=== PATIENT | male | born 1985 | race Caucasian/White ===

== ENCOUNTER 2017-12-18 18:15 | Inpatient (IN) | payer MEDICAID, OTHER ==
[~2017-12-18] VITALS: Ht 180.3 cm; Wt 72.6 kg
[2017-12-18 19:26] LABS: AMPHET/METH SCREEN,URINE POSITIVE (NEGATIVE); BARBITURATE SCREEN, URINE NEGATIVE (NEGATIVE); BENZODIAZEPINES SCREEN,URINE NEGATIVE (NEGATIVE); CANNABINOID SCREEN,URINE NEGATIVE (NEGATIVE); COCAINE SCREEN,URINE NEGATIVE (NEGATIVE); METHADONE SCREEN, URINE NEGATIVE (NEGATIVE); OPIATE SCREEN,URINE NEGATIVE (NEGATIVE)
[2017-12-18 19:27] LABS: PHENCYCLIDINE SCREEN,URINE NEGATIVE (NEGATIVE)
[2017-12-18] MEDS ORDERED: HALOPERIDOL LACTATE 5 MG/ML VIAL IM ONE (19:45)
[2017-12-18] MEDS ORDERED: LORazepam 2 MG/ML VIAL IM ONE (19:45)
[2017-12-18] MEDS ORDERED: DiphenhydrAMINE HCL 50 MG/ML VIAL IM ONE (19:45)
[2017-12-18] MEDS ORDERED: HALOPERIDOL 5 MG TABLET PO PRN (20:15)
[2017-12-18 21:03] LABS: BASOPHILS % (AUTO) 0.6 % (0.0-2.0); EOSINOPHILS % (AUTO) 2.9 % (1.0-6.0); HEMATOCRIT 44.9 % (41-53); LYMPHOCYTES # (AUTO) 2.4 K/uL (1.0-4.8); LYMPHOCYTES % (AUTO) 29.1 % (22.0-44.0); MEAN CORPUSCULAR HEMOGLOBIN 29.8 pg (26.0-34.0); MEAN CORPUSCULAR HGB CONC 33.4 G/dL (31.0-37.0); MEAN CORPUSCULAR VOLUME 89 fL (80-100); MONOCYTES # (AUTO) 0.6 K/uL (0.1-1.0); MONOCYTES % (AUTO) 7.6 % (2.0-9.0); NEUTROPHILS # (AUTO) 4.9 K/uL (1.8-7.7); NEUTROPHILS % (AUTO) 59.8 % (40.0-70.0); PLATELET COUNT (AUTO) 232 K/uL (150-450); RED BLOOD CELL COUNT(AUTO) 5.02 MIL/uL (4.50-5.90); RED CELL DISTRIBUTION WIDTH 14.2 % (11.5-14.5)
[2017-12-18 21:12] LABS: ANION GAP 8 mmol/L (8-16); CALCIUM, TOTAL 8.9 mg/dL (8.8-10.5); CARBON DIOXIDE 27 mmol/L (22-29); CHLORIDE 105 mmol/L (98-107); CREATININE 0.82 mg/dL (0.60-1.30); GLOMERULAR FILTR. RATE CALC > 60 mL/min (>60); GLUCOSE,RANDOM 89 mg/dL (70-110); POTASSIUM 3.6 mmol/L (3.5-5.1); SODIUM SERUM 140 mmol/L (136-145); UREA NITROGEN, BLOOD 10 mg/dL (7-18)
[2017-12-18 21:18] LABS: ALANINE AMINOTRANSFERASE 20 U/L (12-78); ALBUMIN 3.9 g/dL (3.4-5.0); ALKALINE PHOSPHATASE 70 U/L (46-116); ASPARTATE AMINOTRANSFERASE 23 U/L (15-37); BILIRUBIN,TOTAL 2.4 mg/dL (0.1-1.0); TOTAL PROTEIN, SERUM 7.5 g/dL (6.4-8.2)
[2017-12-19 06:38] LABS: CHOL/HDL RATIO 3.2 (4.2-7.3); CHOLESTEROL 124 mg/dL (131-200); HDL CHOLESTEROL 39 mg/dL (40-60); LDL CHOL (CALC.) 70 mg/dL (0-130); TRIGLYCERIDES 76 mg/dL (15-150)
[2017-12-20] MEDS ORDERED: BENZOCAINE/MENTHOL LOZENGE MM PRN (07:30)
[2017-12-20] MEDS ORDERED: ACETAMINOPHEN 325 MG TABLET PO PRN (07:30)
[2017-12-20] MEDS ORDERED: CloNIDine HCL 0.1 MG TABLET PO PRN (07:30)
[2017-12-20] MEDS ORDERED: PETROLATUM,WHITE 71 GM JELLY TP PRN (07:30)
[2017-12-20] MEDS ORDERED: ALBUTEROL SULFATE HFA 90 MCG/PUFF 8 GM INHALER IH PRN (07:30)
[2017-12-20] MEDS ORDERED: MAGNESIUM HYDROXIDE SUSPENSION 30 ML UDCUP PO PRN (07:30)
[2017-12-20] MEDS ORDERED: BACITRACIN 28.4 GM OINTMENT TP PRN (07:30)
[2017-12-20] MEDS ORDERED: LOPERAMIDE HCL 2 MG CAPSULE PO PRN (07:30)
[2017-12-20] MEDS ORDERED: MAG HYDROX/AL HYDROX/SIMETH ES 30 ML SUSPENSION UDCUP PO PRN (07:30)
[2017-12-20] MEDS ORDERED: IBUPROFEN 600 MG TABLET PO PRN (07:30)
[2017-12-20] MEDS ORDERED: ONDANSETRON HCL 4 MG TABLET PO PRN (07:30)
[2017-12-20] MEDS ORDERED: LORazepam 2 MG/ML VIAL ONE (08:06)
[2017-12-20] MEDS ORDERED: HALOPERIDOL LACTATE 5 MG/ML VIAL ONE (08:06)
[2017-12-20] MEDS ORDERED: DiphenhydrAMINE HCL 50 MG/ML VIAL ONE (08:06)
[2017-12-20] MEDS ORDERED: LORazepam 2 MG/ML VIAL IM ONE (08:15)
[2017-12-20] MEDS ORDERED: DiphenhydrAMINE HCL 50 MG/ML VIAL IM ONE (08:15)
[2017-12-20] MEDS ORDERED: HALOPERIDOL LACTATE 5 MG/ML VIAL IM ONE (08:15)
[2017-12-20 12:00] VITALS: BP 110/73
[2017-12-20 16:30] VITALS: BP 118/76
[2017-12-21 01:38] VITALS: BP 148/76
[2017-12-21] MEDS ORDERED: INFLUENZA VIRUS VACCINE QVS 2017-18 (3YR+)/PF 60 MCG/0.5 ML SYRINGE IM ONE (07:30)
[2017-12-21 08:12] VITALS: BP 112/68
[2017-12-21] MEDS ORDERED: OLAN5TAB30 PO (13:58)
[2017-12-21] MEDS ORDERED: MIRT15 PO ×2 (13:58→14:08)
[2017-12-21] MEDS ORDERED: NALT50TA PO (13:58)
[2017-12-21] MEDS ORDERED: NALT50TA6 PO (14:08)
[2017-12-21] MEDS ORDERED: OLAN5TAB40 PO (14:08)
[2017-12-21] MEDS: ZOLPIDEM TARTRATE 10 MG TABLET PO PRN (20:36)
[2017-12-21] MEDS: MIRTAZAPINE 15 MG TABLET PO SCH (20:36)
[2017-12-21] MEDS ORDERED: OLANZapine 5 MG RAPDIS TABLET PO SCH (21:00)
[2017-12-22 07:04] VITALS: BP 119/75
[2017-12-22 08:34] VITALS: BP 109/60
[2017-12-22] MEDS: NALTREXONE HCL 50 MG TABLET PO SCH (09:09)
[2017-12-22 16:00] VITALS: BP 128/80
[2017-12-22] MEDS: MIRTAZAPINE 15 MG TABLET PO SCH (20:40)
[2017-12-22] MEDS: ZOLPIDEM TARTRATE 10 MG TABLET PO PRN (20:40)
[2017-12-22] MEDS: LORazepam 2 MG TABLET PO PRN (20:40)
[2017-12-22] MEDS ORDERED: OLANZapine 5 MG RAPDIS TABLET PO SCH (21:00)
[2017-12-23 06:35] VITALS: BP 111/63
[2017-12-23 08:29] VITALS: BP 109/64
[2017-12-23] MEDS: NALTREXONE HCL 50 MG TABLET PO SCH (08:31)
[2017-12-23] MEDS: LORazepam 2 MG TABLET PO PRN (08:31)
== END 2017-12-23 15:04 | disposition home or self-care (01) | DRG 750 ==
LOC: EMS 18:20 → B3A 21:23 → UNDOADMIN 21:23 → B3A 12-20 10:50
PROVIDERS: ADMIT Psychiatry & Neurology Child & Adolescent Psychiatry; ATTEND Psychiatry & Neurology Psychiatry
PROC: 3E0234Z Introduction of Serum, Toxoid and Vaccine into Muscle, Percutaneous Approach (ICD-10-PCS; principal; 2017-12-21)
DX: F20.0 Paranoid schizophrenia (principal); Z91.14 Patient's other noncompliance with medication regimen; F11.10 Opioid abuse, uncomplicated; F15.10 Other stimulant abuse, uncomplicated; F17.210 Nicotine dependence, cigarettes, uncomplicated; F43.10 Post-traumatic stress disorder, unspecified; G47.00 Insomnia, unspecified; F41.9 Anxiety disorder, unspecified; S51.812A Laceration without foreign body of left forearm, initial encounter; X78.0XXA Intentional self-harm by sharp glass, initial encounter; Y93.89 Activity, other specified; Y92.89 Other specified places as the place of occurrence of the external cause; Z65.3 Problems related to other legal circumstances; Z88.8 Allergy status to other drugs, medicaments and biological substances; Z79.899 Other long term (current) drug therapy; Z23 Encounter for immunization
CPT/HCPCS: 96372; 99291; G0480; J1200; J1630; J2060

== ENCOUNTER 2017-12-30 20:13 | Emergency (ER) | payer MEDICAID ==
[~2017-12-30] VITALS: Ht 180.3 cm; Wt 75.5 kg
[~2017-12-30 20:13] MED LIST: MIRT15 PO; NALT50TA PO; NALT50TA6 PO; OLAN5TAB30 PO; OLAN5TAB40 PO
[2017-12-30 20:16] VITALS: BP 159/92
== END 2017-12-30 21:16 | disposition left against medical advice (07) ==
LOC: EMS 20:14
DX: M54.5 Low back pain (principal); Z53.21 Procedure and treatment not carried out due to patient leaving prior to being seen by health care provider

== ENCOUNTER 2019-02-07 12:25 | Inpatient (IN) | payer MEDICAID ==
[~2019-02-07] VITALS: Ht 180.3 cm; Wt 88.1 kg
[2019-02-07 12:40] VITALS: BP 126/72
[2019-02-07] MEDS ORDERED: ZOLPIDEM TARTRATE 10 MG TABLET PO PRN (13:00)
[2019-02-07] MEDS ORDERED: HALOPERIDOL 5 MG TABLET PO PRN (13:00)
[2019-02-07] MEDS ORDERED: LORazepam 2 MG TABLET PO PRN (13:00)
[2019-02-07 13:15] VITALS: BP 140/73
[2019-02-07 13:37] VITALS: BP 140/73
[2019-02-07] MEDS ORDERED: DOCUSATE SODIUM 100 MG CAPSULE PO PRN (13:45)
[2019-02-07] MEDS ORDERED: ONDANSETRON HCL 4 MG TABLET PO PRN (13:45)
[2019-02-07] MEDS ORDERED: ALBUTEROL SULFATE HFA 90 MCG/PUFF 8 GM INHALER IH PRN (13:45)
[2019-02-07] MEDS ORDERED: GuaiFENesin/D-METHORPHAN [SUGAR-FREE] 200-20MG/10 ML SYRUP UDCUP PO PRN (13:45)
[2019-02-07] MEDS ORDERED: ACETAMINOPHEN 325 MG TABLET PO PRN (13:45)
[2019-02-07] MEDS ORDERED: LOPERAMIDE HCL 2 MG CAPSULE PO PRN (13:45)
[2019-02-07] MEDS ORDERED: PETROLATUM,WHITE 28 GM JELLY TP PRN (13:45)
[2019-02-07] MEDS ORDERED: IBUPROFEN 400 MG TABLET PO PRN (13:45)
[2019-02-07] MEDS ORDERED: MAGNESIUM HYDROXIDE SUSPENSION 30 ML UDCUP PO PRN (13:45)
[2019-02-07] MEDS ORDERED: NICOTINE 14 MG/24 HOUR PATCH TD PRN (13:45)
[2019-02-07] MEDS ORDERED: CloNIDine HCL 0.1 MG TABLET PO PRN (13:45)
[2019-02-07] MEDS ORDERED: MAG HYDROX/AL HYDROX/SIMETH ES 30 ML SUSPENSION UDCUP PO PRN (13:45)
[2019-02-07] MEDS ORDERED: PNEUMOCOCCAL VACCINE POLYVALENT 0.5 ML VIAL [PPSV23] IM ONE (14:00)
[2019-02-07] MEDS: NYSTATIN 15 GM POWDER BOTTLE TP SCH (16:52)
[2019-02-07 17:21] VITALS: BP 147/73
[2019-02-08 06:27] VITALS: BP 121/82
[2019-02-08 08:27] VITALS: BP 129/76
[2019-02-08] MEDS: NYSTATIN 15 GM POWDER BOTTLE TP SCH ×2 (08:31→17:08)
[2019-02-08 16:38] VITALS: BP 117/67
[2019-02-08] MEDS: OLANZapine 10 MG TABLET PO SCH (20:43)
[2019-02-09 06:28] VITALS: BP 118/78
[2019-02-09 08:25] VITALS: BP 135/68
[2019-02-09] MEDS: NYSTATIN 15 GM POWDER BOTTLE TP SCH ×2 (09:13→17:00)
[2019-02-09 16:00] VITALS: BP 128/80
[2019-02-09] MEDS: OLANZapine 10 MG TABLET PO SCH (20:38)
[2019-02-10 06:11] VITALS: BP 124/75
[2019-02-10 08:26] VITALS: BP 128/69
[2019-02-10] MEDS: NYSTATIN 15 GM POWDER BOTTLE TP SCH (08:43)
[2019-02-10] MEDS ORDERED: OLAN10TA3 PO (12:06)
[2019-02-10] MEDS ORDERED: NYST15PO3 TP (12:10)
== END 2019-02-10 12:46 | disposition home or self-care (01) | DRG 750 ==
LOC: B3A 12:52
DX: F25.1 Schizoaffective disorder, depressive type (principal); R45.851 Suicidal ideations; Z59.0 Homelessness; F15.10 Other stimulant abuse, uncomplicated; Z91.5 Personal history of self-harm; Z65.3 Problems related to other legal circumstances; G47.00 Insomnia, unspecified; F41.9 Anxiety disorder, unspecified; F17.200 Nicotine dependence, unspecified, uncomplicated; R03.0 Elevated blood-pressure reading, without diagnosis of hypertension

== ENCOUNTER 2019-09-29 14:58 | Inpatient (IN) | payer MEDICAID ==
[~2019-09-29] VITALS: Ht 180.3 cm; Wt 89.2 kg
[~2019-09-29 14:58] MED LIST changes: -MIRT15 PO; -NALT50TA PO; -NALT50TA6 PO; +NYST15PO3 TP; +OLAN10TA3 PO; -OLAN5TAB30 PO; -OLAN5TAB40 PO
[2019-09-29 15:38] LABS: BASOPHILS % (AUTO) 0.8 % (0.0-2.0); HEMOGLOBIN 15.8 g/dL (13.5-17.5); LYMPHOCYTES % (AUTO) 22.3 % (22.0-44.0); MONOCYTES # (AUTO) 0.4 K/uL (0.1-1.0); RED CELL DISTRIBUTION WIDTH 13.9 % (11.5-14.5)
[2019-09-29 15:43] LABS: EOSINOPHILS % (AUTO) 4.5 % (1.0-6.0); HEMATOCRIT 47.3 % (41-53); LYMPHOCYTES # (AUTO) 1.9 K/uL (1.0-4.8); MEAN CORPUSCULAR HEMOGLOBIN 30.6 pg (26.0-34.0); MEAN CORPUSCULAR HGB CONC 33.3 G/dL (31.0-37.0); MEAN CORPUSCULAR VOLUME 92 fL (80-100); MONOCYTES % (AUTO) 4.6 % (2.0-9.0); NEUTROPHILS # (AUTO) 5.6 K/uL (1.8-7.7); NEUTROPHILS % (AUTO) 67.8 % (40.0-70.0); PLATELET COUNT (AUTO) 238 K/uL (150-450); RED BLOOD CELL COUNT(AUTO) 5.15 MIL/uL (4.50-5.90)
[2019-09-29 16:09] LABS: ANION GAP 10 mmol/L (8-16); CARBON DIOXIDE 26 mmol/L (22-29); CHLORIDE 105 mmol/L (98-107); GLOMERULAR FILTR. RATE CALC > 60 mL/min (>60); GLUCOSE,RANDOM 126 mg/dL (70-110); POTASSIUM 3.8 mmol/L (3.5-5.1); SODIUM SERUM 141 mmol/L (136-145); UREA NITROGEN, BLOOD 14 mg/dL (7-18)
[2019-09-29 16:13] LABS: ALANINE AMINOTRANSFERASE 25 U/L (12-78); ALBUMIN 3.6 g/dL (3.4-5.0); ALKALINE PHOSPHATASE 90 U/L (46-116); ASPARTATE AMINOTRANSFERASE 18 U/L (15-37); BILIRUBIN,TOTAL 0.9 mg/dL (0.1-1.0); TOTAL PROTEIN, SERUM 6.7 g/dL (6.4-8.2)
[2019-09-29] MEDS ORDERED: LORazepam 2 MG TABLET PO PRN (22:30)
[2019-09-29] MEDS ORDERED: ZOLPIDEM TARTRATE 10 MG TABLET PO PRN (22:30)
[2019-09-29] MEDS ORDERED: HALOPERIDOL 5 MG TABLET PO PRN (22:30)
[2019-09-29] MEDS ORDERED: ONDANSETRON HCL 4 MG TABLET PO PRN (23:30)
[2019-09-29] MEDS ORDERED: CloNIDine HCL 0.1 MG TABLET PO PRN (23:30)
[2019-09-29] MEDS ORDERED: PETROLATUM,WHITE 28 GM JELLY TP PRN (23:30)
[2019-09-29] MEDS ORDERED: DOCUSATE SODIUM 100 MG CAPSULE PO PRN (23:30)
[2019-09-29] MEDS ORDERED: GuaiFENesin/D-METHORPHAN [SUGAR-FREE] 200-20MG/10 ML SYRUP UDCUP PO PRN (23:30)
[2019-09-29] MEDS ORDERED: IBUPROFEN 400 MG TABLET PO PRN (23:30)
[2019-09-29] MEDS ORDERED: MAG HYDROX/AL HYDROX/SIMETH ES 30 ML SUSPENSION UDCUP PO PRN (23:30)
[2019-09-29] MEDS ORDERED: ALBUTEROL SULFATE HFA 90 MCG/PUFF 8 GM INHALER IH PRN (23:30)
[2019-09-29] MEDS ORDERED: ACETAMINOPHEN 325 MG TABLET PO PRN (23:30)
[2019-09-29] MEDS ORDERED: NICOTINE 14 MG/24 HOUR PATCH TD PRN (23:30)
[2019-09-29] MEDS ORDERED: MAGNESIUM HYDROXIDE SUSPENSION 30 ML UDCUP PO PRN (23:30)
[2019-09-29] MEDS ORDERED: LOPERAMIDE HCL 2 MG CAPSULE PO PRN (23:30)
[2019-09-30] MEDS ORDERED: ACETAMINOPHEN 325 MG TABLET PO PRN (02:30)
[2019-09-30] MEDS ORDERED: ALBUTEROL SULFATE HFA 90 MCG/PUFF 8 GM INHALER IH PRN (02:30)
[2019-09-30] MEDS ORDERED: MAG HYDROX/AL HYDROX/SIMETH ES 30 ML SUSPENSION UDCUP PO PRN (02:30)
[2019-09-30] MEDS ORDERED: ONDANSETRON HCL 4 MG TABLET PO PRN (02:30)
[2019-09-30] MEDS ORDERED: IBUPROFEN 400 MG TABLET PO PRN (02:30)
[2019-09-30] MEDS ORDERED: LOPERAMIDE HCL 2 MG CAPSULE PO PRN (02:30)
[2019-09-30] MEDS ORDERED: MAGNESIUM HYDROXIDE SUSPENSION 30 ML UDCUP PO PRN (02:30)
[2019-09-30] MEDS ORDERED: GuaiFENesin/D-METHORPHAN [SUGAR-FREE] 200-20MG/10 ML SYRUP UDCUP PO PRN (02:30)
[2019-09-30] MEDS ORDERED: NICOTINE 14 MG/24 HOUR PATCH TD PRN (02:30)
[2019-09-30] MEDS ORDERED: PETROLATUM,WHITE 28 GM JELLY TP PRN (02:30)
[2019-09-30] MEDS ORDERED: CloNIDine HCL 0.1 MG TABLET PO PRN (02:30)
[2019-09-30] MEDS ORDERED: DOCUSATE SODIUM 100 MG CAPSULE PO PRN (02:30)
[2019-09-30 03:10] VITALS: BP 120/64
[2019-09-30 08:20] VITALS: BP 126/79
[2019-09-30] MEDS: ARIPiprazole 15 MG TABLET PO SCH (11:04)
[2019-09-30 16:12] VITALS: BP 134/74
[2019-09-30] MEDS: MIRTAZAPINE 15 MG TABLET PO SCH (20:10)
[2019-10-01 06:09] VITALS: BP 123/82
[2019-10-01 07:11] LABS: BASOPHILS % (AUTO) 0.6 % (0.0-2.0); EOSINOPHILS % (AUTO) 4.5 % (1.0-6.0); HEMOGLOBIN 16.5 g/dL (13.5-17.5); LYMPHOCYTES # (AUTO) 1.8 K/uL (1.0-4.8); LYMPHOCYTES % (AUTO) 22.9 % (22.0-44.0); MEAN CORPUSCULAR HEMOGLOBIN 30.8 pg (26.0-34.0); MEAN CORPUSCULAR HGB CONC 33.7 G/dL (31.0-37.0); MEAN CORPUSCULAR VOLUME 92 fL (80-100); MONOCYTES # (AUTO) 0.4 K/uL (0.1-1.0); MONOCYTES % (AUTO) 5.1 % (2.0-9.0); NEUTROPHILS # (AUTO) 5.4 K/uL (1.8-7.7); NEUTROPHILS % (AUTO) 66.9 % (40.0-70.0); PLATELET COUNT (AUTO) 244 K/uL (150-450); RED BLOOD CELL COUNT(AUTO) 5.35 MIL/uL (4.50-5.90)
[2019-10-01] MEDS: ARIPiprazole 15 MG TABLET PO SCH (08:09)
[2019-10-01 08:18] VITALS: BP 119/78
[2019-10-01 16:12] VITALS: BP 116/60
[2019-10-01] MEDS: MIRTAZAPINE 15 MG TABLET PO SCH (20:36)
[2019-10-02 00:10] VITALS: BP 122/73
[2019-10-02 08:00] VITALS: BP 113/78
[2019-10-02] MEDS: ARIPiprazole 15 MG TABLET PO SCH (08:22)
[2019-10-02] MEDS ORDERED: ARIP15TA2 PO (11:09)
[2019-10-02] MEDS ORDERED: MIRT15 PO (11:09)
== END 2019-10-02 12:50 | disposition home or self-care (01) | DRG 750 ==
LOC: EMS 14:59 → B2S 23:59
PROVIDERS: ATTEND Psychiatry & Neurology Child & Adolescent Psychiatry
DX: F25.1 Schizoaffective disorder, depressive type (principal); R45.851 Suicidal ideations; F11.90 Opioid use, unspecified, uncomplicated; F43.10 Post-traumatic stress disorder, unspecified; R73.9 Hyperglycemia, unspecified; Z87.891 Personal history of nicotine dependence
CPT/HCPCS: G0480